=== PATIENT | female | born 1975 | race Caucasian/White ===

== ENCOUNTER 2021-11-12 14:41 | Outpatient (CLI) | payer BC, SELFPAY ==
--- NOTE | 2021-11-12 14:52 | CRLHL7_ITS ---
For Patients: As a result of the Century Cures Act, medical imaging exams and procedure reports are released immediately into your electronic medical record. You may view this report before your referring provider. If you have questions, please contact your health care provider. BILATERAL SCREENING MAMMOGRAM WITH COMPUTER-AIDED DETECTION TECHNIQUE: CC, MLO and Implant displaced views were obtained. These mammographic images have been obtained using full-field digital technique. These mammographic images were interpreted with the benefit of computer-aided detection. COMPARISON FILM: 05/02/20, 04/28/17. FINDINGS: The breasts are heterogeneously dense, which may obscure small masses IMPRESSION: There is no radiographic evidence for malignancy. ASSESSMENT: BI-RADS Category 2: Benign RECOMMENDATION: Routine screening mammogram in 1 year. A lay language report of this examination will be provided to the patient. Margarito Villela M.D. Diagnostic Radiologist [email or web address] ENZO/Dictated by: Margarito Villela MD @ 11/13/2021 8:14:00 AM (Electronically Signed)
== END 2021-11-12 14:42 | disposition home or self-care (01) ==
LOC: MAMMO 14:42
PROVIDERS: PCP Physician Assistant Medical; Visit Provider Obstetrics & Gynecology
DX: Z12.31 Encounter for screening mammogram for malignant neoplasm of breast (principal); R92.2 Inconclusive mammogram
CPT/HCPCS: 77063; 77067

== ENCOUNTER 2022-10-18 10:07 | Outpatient (CLI) | payer BC, SELFPAY ==
--- NOTE | 2022-10-18 10:15 | CRLHL7_ITS ---
For Patients: As a result of the Century Cures Act, medical imaging exams and procedure reports are released immediately into your electronic medical record. You may view this report before your referring provider. If you have questions, please contact your health care provider. CLINICAL HISTORY: Pelvic pain TECHNIQUE: 2D robles scale ultrasound. In addition color Doppler and spectral Doppler analysis was performed of the pelvis using a transvaginal approach. FINDINGS: On transvaginal imaging, partially exophytic uterine fibroid on the left measuring 5.6 x 3.9 x 4.1 cm. The uterus measures 9.3 x 5.7 x 6.3 cm. The endometrial lining appears normal and measures 4 mm in thickness. IUD is in good position within the endometrial canal. The right ovary measures 4.0 x 1.6 x 3.6 cm in size and the left ovary measures 2.8 x 1.9 x 2.9 cm. The ovaries demonstrate normal arterial and venous blood flow on color Doppler and spectral Doppler analysis. There are no suspicious fluid collections within the cul-de-sac. Hypoechoic right ovarian cyst measuring 1.1 cm and dominant follicle left ovary measuring 1.8 cm. IMPRESSION: Partially exophytic left anterior mid uterine fibroid measuring 5.6 x 3.9 x 4.1 cm. Good position of the IUD within the endometrial canal. No ovarian torsion or excess pelvic free fluid. A small incidental hemorrhagic right ovarian cyst is noted measuring 1.1 cm. Dominant follicle left ovary measuring 1.8 cm. Dictated by Margarito Villela MD @ 10/18/2022 11:09:21 AM (Electronically Signed)
== END 2022-10-18 10:08 | disposition home or self-care (01) ==
LOC: US 10:09
PROVIDERS: PCP Physician Assistant Medical; Visit Provider Obstetrics & Gynecology
DX: T83.84XA Pain due to genitourinary prosthetic devices, implants and grafts, initial encounter (principal); D25.9 Leiomyoma of uterus, unspecified; N83.201 Unspecified ovarian cyst, right side; N88.8 Other specified noninflammatory disorders of cervix uteri; R10.2 Pelvic and perineal pain
CPT/HCPCS: 76830; 93976

== ENCOUNTER 2023-02-03 12:00 | Outpatient (CLI) | payer BC, SELFPAY ==
--- NOTE | 2023-02-03 12:15 | CRLHL7_ITS ---
For Patients: As a result of the Century Cures Act, medical imaging exams and procedure reports are released immediately into your electronic medical record. You may view this report before your referring provider. If you have questions, please contact your health care provider. CLINICAL HISTORY: FOLLOW UP LEIOMYOMA Comparison 10/18/2022 TECHNIQUE: 2D robles scale and color Doppler images were acquired of the pelvis using a transvaginal approach. FINDINGS: Left uterine fibroid is present measuring 4.1 x 2.4 x 3.3 cm, previously measuring 5.6 x 3.9 x 4.1 cm. The uterus measures 8.8 x 4.2 x 4.6 cm. The endometrial lining appears normal and measures 3 mm in thickness. IUD is present within the endometrial canal. The left ovary measures 4.0 x 2.3 x 2.7 cm in size and the right ovary measures 3.5 x 1.7 x 1.6 cm. The ovaries demonstrate normal arterial and venous blood flow on color Doppler analysis. There are no suspicious fluid collections within the cul-de-sac. Simple left ovarian cyst measures 2.8 x 2.3 x 2.5 cm. IMPRESSION: Left-sided partially exophytic uterine fibroid appears smaller measuring 4.1 cm compared to 5.6 cm on the prior study. Dictated by Margarito Villela MD @ 02/04/2023 1:42:48 PM (Electronically Signed)
== END 2023-02-03 12:01 | disposition home or self-care (01) ==
LOC: US 12:01
PROVIDERS: PCP Physician Assistant Medical; Visit Provider Obstetrics & Gynecology
DX: D25.9 Leiomyoma of uterus, unspecified (principal)
CPT/HCPCS: 76830; 84443

== ENCOUNTER 2023-05-05 13:40 | Outpatient (CLI) | payer BC, SELFPAY ==
--- NOTE | 2023-05-05 14:00 | CRLHL7_ITS ---
For Patients: As a result of the Century Cures Act, medical imaging exams and procedure reports are released immediately into your electronic medical record. You may view this report before your referring provider. If you have questions, please contact your health care provider. BILATERAL SCREENING MAMMOGRAM WITH COMPUTER-AIDED DETECTION AND TOMOSYNTHESIS TECHNIQUE: CC, MLO and Implant displaced views were obtained. These mammographic images have been obtained using full-field digital technique. These mammographic images were interpreted with the benefit of computer-aided detection. Breast Tomosynthesis was used in this interpretation. COMPARISON FILM: 11/12/21, 05/02/20, 04/28/17. FINDINGS: There are scattered areas of fibroglandular density. IMPRESSION: There is no radiographic evidence for malignancy. ASSESSMENT: BI-RADS Category 2: Benign RECOMMENDATION: Routine screening mammogram in 1 year. A lay language report of this examination will be provided to the patient. Margarito Villela M.D. Diagnostic Radiologist [email or web address] SP/Dictated by: Margarito Villela MD @ 05/06/2023 8:30:00 AM (Electronically Signed)
== END 2023-05-05 13:41 | disposition home or self-care (01) ==
LOC: MAMMO 13:40
PROVIDERS: PCP Physician Assistant Medical; Visit Provider Physician Assistant Medical
DX: Z12.31 Encounter for screening mammogram for malignant neoplasm of breast (principal)
CPT/HCPCS: 77063; 77067

== ENCOUNTER 2024-05-17 07:43 | Outpatient (CLI) | payer OTHER, SELFPAY ==
--- NOTE | 2024-05-17 09:09 | P.ANES_ITS ---
Anesthesia Charges Start Date/Time Anesthesia Start Date: 05/17/24 Anesthesia Start Time: 08:43 Stop Date/Time Anesthesia Stop Date: 05/17/24 Anesthesia Stop Time: 09:07 Coding CPT Codes CPT Codes: JAVIER LWR INTST SCR COLSC - [id number] ([id number]) P1 - NORMAL HEALTHY PATIENT, QK - SIZE ROLLER OPERATOR 2-4 CNCRNT ANES PROC, QX - PANTOGRAPHER SVC W/ MED DIRECTION
--- NOTE | 2024-05-17 09:09 | P.ANES_ITS ---
Anesthesia Charges Start Date/Time Anesthesia Start Date: 05/17/24 Anesthesia Start Time: 08:43 Stop Date/Time Anesthesia Stop Date: 05/17/24 Anesthesia Stop Time: 09:07 Coding CPT Codes CPT Codes: JAVIER LWR INTST SCR COLSC - [id number] ([id number]) P1 - NORMAL HEALTHY PATIENT, QK - NETWORKING TECHNICIAN 2-4 CNCRNT ANES PROC, QX - INSOLE AND OUTSOLE PREPARER SVC W/ MED DIRECTION
--- NOTE | 2024-05-17 09:09 | W.ANESCHARGE ---
Anesthesia Charges Start Date/Time Anesthesia Start Date: 05/17/24 Anesthesia Start Time: 08:43 Stop Date/Time Anesthesia Stop Date: 05/17/24 Anesthesia Stop Time: 09:07 Coding CPT Codes CPT Codes: JAVIER LWR INTST SCR COLSC - [id number] ([id number]) P1 - NORMAL HEALTHY PATIENT, QK - SPECIALTY SALES REPRESENTATIVE 2-4 CNCRNT ANES PROC, QX - CIRCUIT TESTER SVC W/ MED DIRECTION
--- NOTE | 2024-05-17 09:09 | W.ANESCHARGE ---
Anesthesia Charges Start Date/Time Anesthesia Start Date: 05/17/24 Anesthesia Start Time: 08:43 Stop Date/Time Anesthesia Stop Date: 05/17/24 Anesthesia Stop Time: 09:07 Coding CPT Codes CPT Codes: JAVIER LWR INTST SCR COLSC - [id number] ([id number]) P1 - NORMAL HEALTHY PATIENT, QK - DIRECT SUPPORT PROFESSIONAL 2-4 CNCRNT ANES PROC, QX - USED CAR MAKE READY WORKER SVC W/ MED DIRECTION
== END 2024-05-17 07:44 | disposition home or self-care (01) ==
LOC: OP CLINIC 07:44
PROVIDERS: PCP Physician Assistant Medical; Visit Provider Surgery
DX: Z12.11 Encounter for screening for malignant neoplasm of colon (principal)
CPT/HCPCS: 00812; 45378; J2704

== ENCOUNTER 2025-03-14 14:41 | Outpatient (CLI) | payer OTHER, SELFPAY ==
--- NOTE | 2025-03-14 15:00 | CRLHL7_ITS ---
For Patients: As a result of the Century Cures Act, medical imaging exams and procedure reports are released immediately into your electronic medical record. You may view this report before your referring provider. If you have questions, please contact your health care provider. INDICATION: Leiomyoma of uterus COMPARISON: 02/03/2023 TECHNIQUE: 2D robles-scale and color Doppler images were acquired of the pelvis using a transabdominal and transvaginal approach. Transvaginal imaging performed to better visualize the endometrial stripe and ovaries. FINDINGS: Left-sided uterine fibroid measures 6.1 x 3.3 x 4.3 cm, previously measuring 4.1 x 2.4 x 3.3 cm. Uterus measures 9.9 cm in length by 4.7 cm in AP diameter by 5.6 cm in transverse dimension. IUD is present in good position within the endometrial canal. Endometrium is not thickened. The right ovary measures 3.2 x 1.8 x 1.7 cm in size and the left ovary measures 3.1 x 2.0 x 1.7 cm. The ovaries demonstrate normal arterial and venous blood flow on color Doppler analysis. There are no suspicious fluid collections within the cul-de-sac. IMPRESSION: Left-sided uterine fibroid measures 6.1 cm, previously measuring 4.1 cm. Dictated by Margarito Villela MD @ 03/14/2025 4:15:36 PM (Electronically Signed)
== END 2025-03-14 14:42 | disposition home or self-care (01) ==
LOC: US 14:41
PROVIDERS: Visit Provider Obstetrics & Gynecology
DX: D25.9 Leiomyoma of uterus, unspecified (principal); Z97.5 Presence of (intrauterine) contraceptive device
CPT/HCPCS: 76830; 76856